=== PATIENT | female | born 1930 | race Caucasian/White ===

== ENCOUNTER 2018-03-30 09:00 | Inpatient (IN) | payer BC ==
[2018-03-30 09:36] LABS: ADD MAN DIFF? NO
[2018-03-30] MEDS: SOD CHLORIDE 0.9% 500 ML IV (09:38)
[2018-03-30 09:39] LABS: WHITE BLOOD COUNT 18.8 10^3/ul (4.8-10.8)
[2018-03-30 09:39] LABS: ABNORMAL IP MESSAGE 1; BASOPHIL # 0.1 10^3/ul (0.0-0.1); BASOPHILS % 0.3 % (0.0-2.0); EOSINOPHILS # 0.1 10^3/ul (0.0-0.5); EOSINOPHILS % 0.7 % (0.0-7.0); HEMATOCRIT 27.4 % (37.0-47.0); HEMOGLOBIN 9.4 g/dl (12.0-16.0); LYMPHOCYTES # 1.4 10^3/ul (0.8-2.9); LYMPHOCYTES % 7.3 % (15.0-51.0); MEAN CORPUSCULAR HEMOGLOBIN 33.1 pg (29.0-33.0); MEAN CORPUSCULAR HGB CONC 34.3 g/dl (32.0-37.0); MEAN CORPUSCULAR VOLUME 96.5 fl (82.0-101.0); MEAN PLATELET VOLUME 12.2 fl (7.4-10.4); MONOCYTE # 1.2 10^3/ul (0.3-0.9); MONOCYTES % 6.2 % (0.0-11.0); NEUTROPHIL # 15.3 10^3/ul (1.6-7.5); NEUTROPHILS % 81.2 % (39.0-77.0); NUCLEATED RED BLOOD CELLS # 0.2 10^3/ul (0.0-0.0); NUCLEATED RED BLOOD CELLS% 1.3 /100WBC (0.0-0.0); PLATELET COUNT 96 10^3/UL (140-415); RED BLOOD COUNT 2.84 10^6/ul (4.20-5.40); RED CELL DISTRIBUTION WIDTH 14.8 % (11.5-14.5)
[2018-03-30] MEDS: ALBUTEROL 0.083% (NEB) 2.5 MG/3 ML AMP HHN (09:47)
[2018-03-30 09:48] LABS: POSITIVE DIFF @See below
[2018-03-30 10:00] LABS: ALANINE AMINOTRANSFERASE 67 IU/L (13-69); ALBUMIN 3.4 g/dl (3.3-4.9); ALBUMIN/GLOBULIN RATIO 1.09; ALKALINE PHOSPHATASE 118 IU/L (42-121); ANION GAP 18 (8-16); ASPARTATE AMINO TRANSFERASE 90 IU/L (15-46); BILIRUBIN,INDIRECT 2.2 mg/dl (0-1.1); BILIRUBIN,TOTAL 2.2 mg/dl (0.2-1.3); BLOOD UREA NITROGEN 53 mg/dl (7-20); CALCIUM 9.4 mg/dl (8.4-10.2); CARBON DIOXIDE 27 mmol/L (21-31); CHLORIDE 100 mmol/L (97-110); CREATININE 1.16 mg/dl (0.44-1.00); GLUCOSE 170 mg/dl (70-220); SODIUM 141 mmol/L (135-144); TOTAL PROTEIN 6.5 g/dl (6.1-8.1)
[2018-03-30 10:02] LABS: LACTIC ACID 3.3 mmol/L (0.5-2.0)
[2018-03-30 10:02] LABS: INR 1.56; PT RATIO 1.5
[2018-03-30 10:11] LABS: TROPONIN-I 0.136 ng/ml (0.000-0.120)
[2018-03-30 10:28] LABS: AADO2 Arterial 606.9 mmHg (7.0-24.0); Allen Test ACCEPTAB; Arterial Base Excess 0.9 mmol/L (-3.0-3); Arterial Blood Gas Oxygen Sat 94.6 mmHG (95.0-100.0); Arterial COHb 0.9 % (0.0-3.0); Arterial Fraction of Oxyhgb 93.6 % (93.0-99.0); Arterial HCO3 23.1 mmol/L (22.0-26.0); Arterial MetHb 0.2 % (0.0-1.5); Arterial Total Hemglobin 9.8 g/dl (12.0-18.0); Arterial pCO2 28.6 mmhg (35-45); MODE MASK - NRB; Site Left Radial
[2018-03-30] MEDS ORDERED: ASPIRIN 325 MG TAB PO (10:30)
[2018-03-30] MEDS: PIPER-TAZO 3.375 GM IV (PMX) 100 ML IVPB (11:29)
[2018-03-30] MEDS: ASPIRIN 300 MG SUPP PR (11:30)
[2018-03-30] MEDS: VANCOMYCIN 1 GM (PMX) 250 ML IVPB (12:53)
[2018-03-30] MEDS ORDERED: NACL 0.9% 3 ML SYG IV (14:30)
[2018-03-30] MEDS ORDERED: MAGNESIUM HYDROXIDE 30ML CUP PO (14:30)
[2018-03-30] MEDS ORDERED: VANCOMYCIN IV PER PHARMACY XX (14:30)
[2018-03-30] MEDS ORDERED: BISACODYL (EC) 5 MG TAB PO (14:30)
[2018-03-30] MEDS ORDERED: CEFEPIME 1GM/50 ML (PMX) 50 ML IVPB (14:30)
[2018-03-30] MEDS ORDERED: ACETAMINOPHEN 325 MG TAB PO (14:30)
[2018-03-30] MEDS ORDERED: HYDROCODONE/APAP (5/325) TAB PO (14:30)
[2018-03-30] MEDS ORDERED: DOCUSATE SODIUM 100 MG CAP PO (14:30)
[2018-03-30] MEDS: CEFEPIME 2GM/50 ML (PMX) 50 ML IVPB ×2 (15:01→22:27)
[2018-03-30 17:09] LABS: CREATINE KINASE 277 IU/L (23-200)
[2018-03-30] MEDS: ALBUTEROL/IPRATROPIUM (NEB) 3 ML AMP NEB (17:18)
[2018-03-30 17:22] LABS: CK INDEX 2.3; CK-MB 6.47 ng/ml (0.0-2.4)
[2018-03-30 17:23] LABS: TROPONIN-I 0.123 ng/ml (0.000-0.120)
[2018-03-30 21:58] LABS: CREATINE KINASE 310 IU/L (23-200)
[2018-03-30 22:01] LABS: LACTIC ACID 2.6 mmol/L (0.5-2.0)
[2018-03-30 22:11] LABS: CK INDEX 2.6; CK-MB 8.01 ng/ml (0.0-2.4)
[2018-03-30 22:16] LABS: TROPONIN-I 0.131 ng/ml (0.000-0.120)
[2018-03-31] MEDS: ALBUTEROL/IPRATROPIUM (NEB) 3 ML AMP NEB ×5 (00:40→17:00)
[2018-03-31 01:03] LABS: Allen Test ACCEPTAB; Arterial Base Excess -10.1 mmol/L (-3.0-3); Arterial Blood Gas Oxygen Sat 74.3 mmHG (95.0-100.0); Arterial COHb 1.1 % (0.0-3.0); Arterial Fraction of Oxyhgb 73.4 % (93.0-99.0); Arterial HCO3 15.2 mmol/L (22.0-26.0); Arterial MetHb 0.1 % (0.0-1.5); Arterial Total Hemglobin 9.9 g/dl (12.0-18.0); Arterial pCO2 31.1 mmhg (35-45); MODE MASK - NRB; Site Right Radial
[2018-03-31] MEDS: LEVOTHYROXINE 125 MCG TAB PO (05:20)
[2018-03-31 06:49] LABS: ABNORMAL IP MESSAGE 1; HEMATOCRIT 26.8 % (37.0-47.0); HEMOGLOBIN 8.8 g/dl (12.0-16.0); MEAN CORPUSCULAR HEMOGLOBIN 33.5 pg (29.0-33.0); MEAN CORPUSCULAR HGB CONC 32.8 g/dl (32.0-37.0); MEAN CORPUSCULAR VOLUME 101.9 fl (82.0-101.0); NUCLEATED RED BLOOD CELLS% 3.5 /100WBC (0.0-0.0); PLATELET COUNT 33 10^3/UL (140-415); RED BLOOD COUNT 2.63 10^6/ul (4.20-5.40); RED CELL DISTRIBUTION WIDTH 16.4 % (11.5-14.5)
[2018-03-31 06:49] LABS: WHITE BLOOD COUNT 28.1 10^3/ul (4.8-10.8)
[2018-03-31 07:01] LABS: ADD MAN DIFF? YES; POSITIVE DIFF @See below
[2018-03-31 07:12] LABS: CREATINE KINASE 458 IU/L (23-200)
[2018-03-31 07:14] LABS: ANION GAP 29 (8-16); BLOOD UREA NITROGEN 58 mg/dl (7-20); CALCIUM 8.3 mg/dl (8.4-10.2); CARBON DIOXIDE 15 mmol/L (21-31); CHLORIDE 105 mmol/L (97-110); GLUCOSE 173 mg/dl (70-220); MAGNESIUM 2.7 mg/dl (1.7-2.5); SODIUM 144 mmol/L (135-144)
[2018-03-31 07:30] LABS: TROPONIN-I 0.209 ng/ml (0.000-0.120)
[2018-03-31 07:39] LABS: TROPONIN-I 0.209 ng/ml (0.000-0.120)
[2018-03-31] MEDS: SOD CHLORIDE 0.9% 500 ML IV (08:33)
[2018-03-31] MEDS: ENOXAPARIN 40 MG/0.4 ML SYG SC (08:42)
[2018-03-31 08:52] LABS: AADO2 Arterial 626.6 mmHg (7.0-24.0); Allen Test ACCEPTAB; Arterial Base Excess -13.9 mmol/L (-3.0-3); Arterial Blood Gas Oxygen Sat 80.7 mmHG (95.0-100.0); Arterial COHb 1.2 % (0.0-3.0); Arterial Fraction of Oxyhgb 79.7 % (93.0-99.0); Arterial HCO3 12.3 mmol/L (22.0-26.0); Arterial MetHb 0.1 % (0.0-1.5); Arterial Total Hemglobin 10.3 g/dl (12.0-18.0); Arterial pCO2 29.8 mmhg (35-45); MODE MASK - NRB; Site Left Radial
[2018-03-31 09:25] LABS: ANISOCYTOSIS 1+ (0-0); BAND NEUTROPHILS #M 0.5 10^3/ul (0.0-0.6); BAND NEUTROPHILS % (M) 2 % (0-4); BURR CELLS 3+ (0-0); ERYTHROBLAST% (NRBC) (M) 3 % (0-0); GIANT THROMBO% (M) 3 % (0-0); LYMPHOCYTES #M 0.5 10^3/ul (0.8-2.9); LYMPHOCYTES % (M) 2 % (15-51); MONOCYTE #M 0.8 10^3/ul (0.3-0.9); MONOCYTES % (M) 3 % (0-11); MYELOCYTES #M 0.2 10^3/ul (0.0-0.0); MYELOCYTES % (M) 1 % (0-0); PLATELET ESTIMATE SIG DECREASED; POIKILOCYTOSIS 3+ (0-0); POLYCHROMASIA 1+ (0-0); REACTIVE LYMPHOCYTES #M 0.2 10^3/ul (0.0-0.0); REACTIVE LYMPHOCYTES% (M) 1 % (0-0); SEG NEUT #M 25.7 10^3/ul (1.6-7.5); SEGMENTED NEUTROPHILS (M) % 91 % (39-77); SMUDGE%M 3 % (0-0)
[2018-03-31] MEDS: CEFEPIME 2GM/50 ML (PMX) 50 ML IVPB (09:37)
[2018-03-31] MEDS: ARTIFICIAL TEARS 15 ML OPH BOTH EYES ×2 (11:00→13:00)
[2018-03-31] MEDS: ASPIRIN 81 MG TAB PO (11:00)
[2018-03-31] MEDS: FLUOXETINE 10 MG CAP PO (11:30)
[2018-03-31] MEDS: OLANZAPINE 2.5 MG TAB PO (11:30)
[2018-03-31] MEDS ORDERED: HALOPERIDOL 5 MG INJ IM (12:30)
[2018-03-31] MEDS ORDERED: DIMETHICONE STICK TOP (12:30)
[2018-03-31] MEDS ORDERED: ARTIFICIAL TEARS 15 ML OPH BOTH EYES (12:30)
[2018-03-31] MEDS ORDERED: ACETAMINOPHEN 325 MG TAB PO (12:30)
[2018-03-31] MEDS ORDERED: LORAZEPAM 2 MG INJ IV (12:30)
[2018-03-31] MEDS ORDERED: KETOROLAC 15 MG INJ IV (12:30)
[2018-03-31] MEDS ORDERED: ACETAMINOPHEN 500 MG TAB PO (12:30)
[2018-03-31] MEDS ORDERED: LORAZEPAM (2 MG/ML PO SYG) SL (12:30)
[2018-03-31] MEDS: VANCOMYCIN 750 MG in SOD CHLORIDE 0.9% 150 ML IVPB (13:00)
[2018-03-31] MEDS ORDERED: morphine (DRIP) 100 MG/100 ML 100 ML IV (13:30)
[2018-03-31] MEDS ORDERED: CALCIUM CARBONATE 1.25 GM TAB PO (21:00)
[2018-04-01] MEDS ORDERED: CEFEPIME 1GM/50 ML (PMX) 50 ML IVPB (09:00)
[2018-04-02] MEDS ORDERED: VANCOMYCIN 750 MG in SOD CHLORIDE 0.9% 150 ML IVPB (01:00)
== END 2018-03-31 13:20 | disposition expired | DRG 871 ==
LOC: MS2 03-31 11:36 → E/R 09:00 → MS4 11:04 → TEL 23:51
DX: A41.9 Sepsis, unspecified organism (principal); J18.9 Pneumonia, unspecified organism; J96.01 Acute respiratory failure with hypoxia; E87.2 Acidosis; E78.5 Hyperlipidemia, unspecified; E03.9 Hypothyroidism, unspecified; E11.9 Type 2 diabetes mellitus without complications; F32.9 Major depressive disorder, single episode, unspecified; Z87.891 Personal history of nicotine dependence; Z79.82 Long term (current) use of aspirin
CPT/HCPCS: 36415; 36600; 71045; 80048; 80053; 82550; 82553; 82803; 83605; 83735; 84484; 85025; 85610; 85730; 87040; 87400; 93005; 93306; 94640; 94660; 94664; 96365; 96366; 96375; 99291-25